=== PATIENT | male | born 1945 | race Caucasian/White ===

== ENCOUNTER 2019-04-01 16:26 | Emergency (ER) | payer MEDICARE ==
[~2019-04-01] VITALS: Ht 188 cm; Wt 72.7 kg
[2019-04-01 17:08] LABS: BASOPHILS % (AUTO) 0.5 % (0-1); EOSINOPHILS % (AUTO) 0.4 % (0-6); HEMATOCRIT 37.1 % (42.0-52.0); HEMOGLOBIN 12.3 g/dl (14.0-17.9); LYMPHOCYTES # (AUTO) 0.6 X10'3 (1.1-4.8); LYMPHOCYTES % (AUTO) 6.9 % (21-51); MEAN CORPUSCULAR HEMOGLOBIN 27.8 PG (27.0-31.0); MEAN CORPUSCULAR HGB CONC 33.1 g/dL (33.0-36.5); MEAN CORPUSCULAR VOLUME 83.9 FL (78-98); MEAN PLATELET VOLUME 6.8 FL (7.4-10.4); MONOCYTES # (AUTO) 0.6 X10'3 (0-0.9); MONOCYTES % (AUTO) 6.2 % (2-12); NEUTROPHILS # (AUTO) 7.8 X10'3 (1.8-7.7); PLATELET COUNT 469 X10'3 (140-440); RED BLOOD COUNT 4.42 X10'6 (4.70-6.10); RED CELL DISTRIBUTION WIDTH 14.1 % (11.5-14.5); WHITE BLOOD COUNT 9.1 X10'3 (4.5-11.0)
[2019-04-01 17:19] LABS: ALANINE AMINOTRANSFERASE 15 U/L (12-78); ALBUMIN 2.6 G/DL (3.4-5.0); ALBUMIN/GLOBULIN RATIO 0.5 (1.1-1.5); ALKALINE PHOSPHATASE 82 IU/L (46-116); ANION GAP 8 (8-16); ASPARTATE AMINO TRANSFERASE 10 U/L (10-37); BILIRUBIN,TOTAL 0.4 MG/DL (0.1-1.0); BLOOD UREA NITROGEN 12 MG/DL (7-18); BUN/CREATININE RATIO 12.2 (5.4-32.0); CALCIUM 10.2 MG/DL (8.5-10.1); CHLORIDE 99 MMOL/L (99-107); CREATININE 0.98 MG/DL (0.60-1.10); GLUCOSE 195 MG/DL (70-104); POTASSIUM 3.5 MMOL/L (3.5-5.1); SODIUM 138 MMOL/L (135-145); TOTAL CARBON DIOXIDE 31.2 MMOL/L (24-32); TOTAL PROTEIN 7.4 G/DL (6.4-8.2); eGFR 75 ML/MIN
[2019-04-01] MEDS ORDERED: HYDR-4383 PO (20:43)
[2019-04-01] MEDS ORDERED: CEPH250T PO (20:44)
[2019-04-01] MEDS ORDERED: oxyCODONE/APAP 10/325mg tablet PO ONE (20:45)
[2019-04-01] MEDS ORDERED: CefTRIAXone 1000mg IM Kit (w/lidocaine diluent) IM ONE (20:45)
[2019-04-01 21:02] VITALS: BP 113/69
== END 2019-04-01 21:04 | disposition home or self-care (01) ==
LOC: ER 16:27
DX: L02.11 Cutaneous abscess of neck (principal); L03.221 Cellulitis of neck; R91.1 Solitary pulmonary nodule; D11.9 Benign neoplasm of major salivary gland, unspecified; D09.8 Carcinoma in situ of other specified sites; Z79.2 Long term (current) use of antibiotics; Z79.899 Other long term (current) drug therapy
CPT/HCPCS: 36415; 70450; 70490; 71045; 71250; 80053; 84484; 85025; 93005; 96372; 99284; J0696

== ENCOUNTER 2019-04-24 19:53 | Inpatient (IN) | payer MEDICARE, OTHER ==
[~2019-04-24] VITALS: Ht 188 cm; Wt 72.7 kg
[2019-04-24] MEDS: normal saline 1000ml 1,000 ML IV SCH (01:00)
[~2019-04-24 19:53] MED LIST: HYDR-4383 PO
[2019-04-24 20:50] LABS: BASOPHILS # (AUTO) 0.3 X10'3 (0-0.2); BASOPHILS % (AUTO) 1.9 % (0-1); EOSINOPHILS % (AUTO) 0.2 % (0-6); HEMATOCRIT 38.5 % (42.0-52.0); HEMOGLOBIN 12.4 g/dl (14.0-17.9); LYMPHOCYTES # (AUTO) 1.2 X10'3 (1.1-4.8); LYMPHOCYTES % (AUTO) 7.7 % (21-51); MEAN CORPUSCULAR HEMOGLOBIN 26.9 PG (27.0-31.0); MEAN CORPUSCULAR HGB CONC 32.1 g/dL (33.0-36.5); MEAN CORPUSCULAR VOLUME 83.8 FL (78-98); MEAN PLATELET VOLUME 8.1 FL (7.4-10.4); MONOCYTES # (AUTO) 1.1 X10'3 (0-0.9); MONOCYTES % (AUTO) 7.3 % (2-12); NEUTROPHILS # (AUTO) 12.7 X10'3 (1.8-7.7); NEUTROPHILS % (AUTO) 82.9 % (42-75); PLATELET COUNT 345 X10'3 (140-440); RED CELL DISTRIBUTION WIDTH 15.7 % (11.5-14.5); WHITE BLOOD COUNT 15.3 X10'3 (4.5-11.0)
[2019-04-24 21:06] LABS: ALANINE AMINOTRANSFERASE 32 U/L (12-78); ALBUMIN 2.7 G/DL (3.4-5.0); ALBUMIN/GLOBULIN RATIO 0.6 (1.1-1.5); ALKALINE PHOSPHATASE 97 IU/L (46-116); ANION GAP 14 (8-16); ASPARTATE AMINO TRANSFERASE 40 U/L (10-37); BILIRUBIN,TOTAL 0.7 MG/DL (0.1-1.0); BLOOD UREA NITROGEN 43 MG/DL (7-18); BUN/CREATININE RATIO 23.6 (5.4-32.0); CHLORIDE 100 MMOL/L (99-107); CREATININE 1.82 MG/DL (0.60-1.10); GLUCOSE 236 MG/DL (70-104); MAGNESIUM 2.3 MG/DL (1.5-2.4); PARTIAL THROMBOPLASTIN TIME 41 SECONDS (22-32); POTASSIUM 3.5 MMOL/L (3.5-5.1); SODIUM 145 MMOL/L (135-145); TOTAL CARBON DIOXIDE 31.2 MMOL/L (24-32); TOTAL PROTEIN 7.4 G/DL (6.4-8.2); eGFR 37 ML/MIN
[2019-04-24] MEDS ORDERED: normal saline 1000ML IV soln IVB ONE ×2 (21:20→22:25)
[2019-04-24] MEDS ORDERED: ATOR10TA87 PO (21:27)
[2019-04-24] MEDS ORDERED: WARF1TAB PO (21:27)
[2019-04-24] MEDS ORDERED: LISI-604 PO (21:27)
--- NOTE | 2019-04-24 21:53 | NUR ---
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 1 L NS BOLUS ORDERED
[2019-04-24 22:09] LABS: CLARITY,URINE CLEAR (Clear); COLOR,URINE YELLOW (Yellow); GLUCOSE, URINE NEGATIVE (Neg); KETONES,URINE NEGATIVE (Neg); LEUKOCYTE ESTERASE ,URINE NEGATIVE (Neg); NITRITES, URINE NEGATIVE (Neg); OCCULT BLOOD,URINE NEGATIVE (Neg); PROTEIN,URINE NEGATIVE (Neg); UROBILINOGEN,URINE 0.2 E.U/dL (0.2-1.0)
[2019-04-24 22:10] LABS: UA COLLECTION TYPE FOLEY CATH
[2019-04-24] MEDS ORDERED: vancomycin/NS 1 GM ADD-VANTAGE 250 ML IV ONE (22:25)
[2019-04-24] MEDS ORDERED: CefTRIAXone 2gm/D5W 50ml 50 ML IV ONE (22:25)
[2019-04-24] MEDS ORDERED: magnesium hydroxide 30ml (MOM) UD suspension PO PRN (22:50)
[2019-04-24] MEDS ORDERED: HYDROcodone/acetaminophen 5mg/325mg tablet PO PRN (22:50)
[2019-04-24] MEDS ORDERED: magnesium 2GM in 50ml NS 50 ML IV PRN (22:50)
[2019-04-24] MEDS ORDERED: acetaminophen 325mg tablet PO PRN ×2 (22:50)
[2019-04-24] MEDS ORDERED: magnesium 4gm in 100ml NS 100 ML IV PRN (22:50)
[2019-04-24] MEDS ORDERED: potassium CL 10mEq/100ml bag 100 ML IV PRN (22:50)
[2019-04-24] MEDS ORDERED: magnesium Cl slow-release 64mg tablet PO PRN (22:50)
[2019-04-24] MEDS ORDERED: ondansetron/PF 4mg/2ml inj IV PRN (22:50)
[2019-04-24] MEDS ORDERED: morphine 2 MG/ML inj. syringe IV PRN ×2 (22:50)
[2019-04-24] MEDS ORDERED: mag hydrox/Alum hydrox/simeth 30ml oral suspension PO PRN (22:50)
--- NOTE | 2019-04-24 23:15 | NUR ---
Patient in room PCU 3009. I have received report from sudeep Jensen and had the opportunity to ask questions and assume patient care. ER nurse said pt needs a sitter due to pull out lines, but no order was put in.
[2019-04-24 23:30] VITALS: BP 129/65
[2019-04-25] VITALS (7 sets, daily range): BP systolic 90–141; BP diastolic 50–82
[2019-04-25 01:36] LABS: BASOPHILS % (AUTO) 0.1 % (0-1); EOSINOPHILS % (AUTO) 0 % (0-6); HEMATOCRIT 38.3 % (42.0-52.0); HEMOGLOBIN 12.7 g/dl (14.0-17.9); LYMPHOCYTES # (AUTO) 0.3 X10'3 (1.1-4.8); LYMPHOCYTES % (AUTO) 3.7 % (21-51); MEAN CORPUSCULAR HEMOGLOBIN 26.9 PG (27.0-31.0); MEAN CORPUSCULAR HGB CONC 33.2 g/dL (33.0-36.5); MEAN CORPUSCULAR VOLUME 81.1 FL (78-98); MEAN PLATELET VOLUME 8.1 FL (7.4-10.4); MONOCYTES # (AUTO) 0.4 X10'3 (0-0.9); MONOCYTES % (AUTO) 4.2 % (2-12); NEUTROPHILS # (AUTO) 8.3 X10'3 (1.8-7.7); PLATELET COUNT 287 X10'3 (140-440); RED BLOOD COUNT 4.72 X10'6 (4.70-6.10); RED CELL DISTRIBUTION WIDTH 15.2 % (11.5-14.5)
--- NOTE | 2019-04-25 01:47 | NUR ---
paged Dr. Ornelas about pt vital sign Kyle Doshi 3009 is meeting criteria for sepsis, temp 102.5, Hr 130s sustaining, lactic 2.8. Thanks, Antonina [phone]! Got an order 1L in two hours from Dr. Ornelas.
[2019-04-25 01:51] LABS: ALBUMIN 2.6 G/DL (3.4-5.0); ANION GAP 7 (8-16); BLOOD UREA NITROGEN 41 MG/DL (7-18); BUN/CREATININE RATIO 26.5 (5.4-32.0); CHLORIDE 103 MMOL/L (99-107); CREATININE 1.55 MG/DL (0.60-1.10); GLUCOSE 176 MG/DL (70-104); MAGNESIUM 2.3 MG/DL (1.5-2.4); POTASSIUM 3.2 MMOL/L (3.5-5.1); SODIUM 145 MMOL/L (135-145); TOTAL CARBON DIOXIDE 34.8 MMOL/L (24-32); eGFR 44 ML/MIN
[2019-04-25 01:53] LABS: CALCIUM 12.7 MG/DL (8.5-10.1)
--- NOTE | 2019-04-25 02:06 | NUR ---
PAGER ID: [phone] MESSAGE: pt [phone] Kyle Doshi is not able to take oral Tylenol, can he get an order of suppository Tylenol? Ca is 12.7, Thanks, Antonina [phone]!
[2019-04-25] MEDS ORDERED: acetaminophen 650mg rectal suppository RC ONE (02:10)
[2019-04-25] MEDS ORDERED: normal saline 1000ml 1,000 ML IV ONE (02:10)
[2019-04-25] MEDS ORDERED: acetaminophen 650mg rectal suppository RC PRN (02:20)
--- NOTE | 2019-04-25 03:01 | NUR ---
Dr. Ornelas called and put in new order. Pt is not cooperative with consuming anything by mouth. wants to do a CT of ab with contrast on 04/26 due to pt not swallowing
--- NOTE | 2019-04-25 03:07 | NUR ---
pt resting on bed, no response verbally when being asked, not pulling out lines, will keep evaluating if pt needs a sitter order
--- NOTE | 2019-04-25 03:08 | NUR ---
pt not able to response verbaly anymore, withdraw to pain, resting comfortably on bed
--- NOTE | 2019-04-25 06:40 | NUR ---
Patient in room PCU 3009. I have received report from IMELDA Sarkar and had the opportunity to ask questions and assume patient care. Patient resting in bed, bed locked and low, call light in reach, NS@100ml/hr, will continue to monitor.
[2019-04-25] MEDS: K and/or MAG REPLACEMENT MC SCH (07:07)
[2019-04-25] MEDS: enoxaparin 40mg/0.4ml syringe SQ SCH (07:07)
--- NOTE | 2019-04-25 07:55 | NUR ---
patient reports he is unable to swallow, does not want food tray. Will get oral swabs for mucus membrane dryness
--- NOTE | 2019-04-25 08:12 | NUR ---
PAGER ID: [phone] MESSAGE: IMELDA Griffith, ext [phone], Doshi, patient has skin cx lesions on his chest with oozing wounds and sloughing skin, is EKG necessary? He's SR w/occ PVCs on tele. Also, he cannot swallow, I made him NPO
[2019-04-25] MEDS: normal saline 1000ml 1,000 ML IV SCH ×2 (08:47→20:28)
[2019-04-25 09:51] LABS: ALBUMIN 2.1 G/DL (3.4-5.0); ANION GAP 5 (8-16); BLOOD UREA NITROGEN 37 MG/DL (7-18); BUN/CREATININE RATIO 28.7 (5.4-32.0); CALCIUM 11.4 MG/DL (8.5-10.1); CHLORIDE 108 MMOL/L (99-107); CREATININE 1.29 MG/DL (0.60-1.10); GLUCOSE 154 MG/DL (70-104); POTASSIUM 3.1 MMOL/L (3.5-5.1); SODIUM 144 MMOL/L (135-145); TOTAL CARBON DIOXIDE 30.8 MMOL/L (24-32); eGFR 55 ML/MIN
[2019-04-25] MEDS: potassium CL 10mEq/100ml bag 100 ML IV PRN ×4 (09:59→16:09)
--- NOTE | 2019-04-25 12:41 | NUR ---
PAGER ID: [phone] MESSAGE: IMELDA Griffith, ext [phone], Tico, critical value: +BC gram - rods, gram + cocci in pairs both in the anaerobic bottle
--- NOTE | 2019-04-25 15:57 | NUR ---
PAGER ID: [phone] MESSAGE: IMEDLA Griffith, ext [phone], Tico, critical value: BC+ aerobic with gram+ cocci pairs+chains.
[2019-04-25 16:06] LABS: HEMOGLOBIN A1C 7.7 % (4.5-6.2)
--- NOTE | 2019-04-25 18:11 | NUR ---
Patient in room PCU 3009. I have received report from Gladis SEGURA and had the opportunity to ask questions and assume patient care.
--- NOTE | 2019-04-25 18:30 | NUR ---
Problems reprioritized. Patient report given, questions answered & plan of care reviewed with IMELDA Sarkar.
--- NOTE | 2019-04-25 18:35 | NUR ---
spoke to Dr. Crane about the abdominal CT, he said he doesn't think the pt needs it.
[2019-04-25] MEDS: diatr meglu/diatrizoate 30ml oral sol.-(3 dose) bottle PO SCH (18:38)
[2019-04-25] MEDS: lactobacillus rhamnosus 10,000 MMU CELLS/CAPSULE PO SCH (20:28)
[2019-04-25] MEDS: CefTRIAXone 2gm/D5W 50ml 50 ML IV SCH (21:25)
[2019-04-25] MEDS ORDERED: CefTRIAXone 2gm/D5W 50ml 50 ML IV SCH (22:00)
[2019-04-25] MEDS ORDERED: vancomycin/NS 1 GM ADD-VANTAGE 250 ML IV SCH ×2 (22:00)
[2019-04-26] VITALS (7 sets, daily range): BP systolic 107–150; BP diastolic 62–81
[2019-04-26 06:09] LABS: BASOPHILS % (AUTO) 0.3 % (0-1); EOSINOPHILS % (AUTO) 0.1 % (0-6); HEMATOCRIT 31.8 % (42.0-52.0); HEMOGLOBIN 10.5 g/dl (14.0-17.9); LYMPHOCYTES # (AUTO) 0.4 X10'3 (1.1-4.8); MEAN CORPUSCULAR HGB CONC 32.9 g/dL (33.0-36.5); MONOCYTES # (AUTO) 0.4 X10'3 (0-0.9); MONOCYTES % (AUTO) 9.8 % (2-12); NEUTROPHILS # (AUTO) 3.7 X10'3 (1.8-7.7); NEUTROPHILS % (AUTO) 81.8 % (42-75); PLATELET COUNT 236 X10'3 (140-440); RED BLOOD COUNT 3.88 X10'6 (4.70-6.10); RED CELL DISTRIBUTION WIDTH 15.4 % (11.5-14.5); WHITE BLOOD COUNT 4.6 X10'3 (4.5-11.0)
[2019-04-26 06:15] LABS: ALBUMIN 2.1 G/DL (3.4-5.0); ANION GAP 6 (8-16); BLOOD UREA NITROGEN 31 MG/DL (7-18); BUN/CREATININE RATIO 25.2 (5.4-32.0); CALCIUM 11.7 MG/DL (8.5-10.1); CHLORIDE 110 MMOL/L (99-107); CREATININE 1.23 MG/DL (0.60-1.10); GLUCOSE 126 MG/DL (70-104); MAGNESIUM 2.1 MG/DL (1.5-2.4); POTASSIUM 3.1 MMOL/L (3.5-5.1); SODIUM 148 MMOL/L (135-145); TOTAL CARBON DIOXIDE 32.1 MMOL/L (24-32); eGFR 58 ML/MIN
--- NOTE | 2019-04-26 06:25 | NUR ---
Patient in room PCU 3009. I have received report from IMELDA PALOMINO and had the opportunity to ask questions and assume patient care.
--- NOTE | 2019-04-26 06:43 | NUR ---
Problems reprioritized. Patient report given, questions answered & plan of care reviewed with Cristofer RN.
[2019-04-26] MEDS: diatr meglu/diatrizoate 30ml oral sol.-(3 dose) bottle PO SCH ×2 (07:00→20:21)
[2019-04-26] MEDS: normal saline 1000ml 1,000 ML IV SCH ×3 (07:36→23:14)
[2019-04-26] MEDS: lactobacillus rhamnosus 10,000 MMU CELLS/CAPSULE PO SCH ×2 (07:37→21:05)
[2019-04-26] MEDS: potassium Cl 20 mEq SR tablet PO PRN ×3 (07:37→16:22)
[2019-04-26] MEDS: enoxaparin 40mg/0.4ml syringe SQ SCH (07:38)
[2019-04-26] MEDS: K and/or MAG REPLACEMENT MC SCH (08:00)
[2019-04-26] MEDS: vancomycin/NS 1 GM ADD-VANTAGE 250 ML IV SCH ×2 (12:10→23:14)
--- NOTE | 2019-04-26 13:24 | NUR ---
DM/Malnutrition consults: Pt admit w/ ALOC AOx1 DX sepsis, dehydration, possible PNA, and RUSTY. Hx T2DM A1C 7.7; not appropriate for ed at this time. Pt hx chemo for squamous cell CA admit w/ lytic lesions possible new METS per MD note. Ca 11.7 likely r/t METS per MD. Pt SO/family seen by RD at bedside and report prior to chemo starting May-Jun 2018 pt was over 200 pounds w/ May 2018 admit wt 196pounds. SO reports prior to increased sickness past few weeks pt was starting to regain wt as chemo course had finished but then PO decreased r/t new illness. SO reports pt usually drinks ensures TIDWM at home as well as ice cream and high kcal foods in order to attempt regaining wt when appetite was higher. Pt current wt is pt stated pending official scaled wt this admit but SO does reports 175 pounds prior to most recent illness past 2 weeks w/ current stated wt at 160 pounds. Though exact amount unsure there is at least 30 pound wt loss within past 9 months 15-18% severe loss in addition to visible severe muscle/fat wasting, and poor PO hx. Pt qualifies for severe malnutrition at this time; MD notified. SO/family provided w/ written/verbal malnutrition ed w/ RD contact information provided. Diet advanced to full liquids but refusing and trouble w/ PO per ; RD recommended HAT PARTS CUTTER MACHINE BSS. Pending HAT PARTS CUTTER MACHINE BSS in AM; will tailor ONS based on recs. Will continue to monitor. Rec: 1. advance diet per MD/HAT PARTS CUTTER MACHINE to regular 2. IF tolerated thin liquids; ensure enlive TIDWM, ice cream TIDWM 3. IF good PO once on regular diet; consider carb controlled restriction 4. MVI/mineral for nutrient needs 5. IF NPO per HAT PARTS CUTTER MACHINE; consider alternative nutrition to meet needs w/ malnutrition Addendum: 04/26/19 at [address] Amended: Links added.
--- NOTE | 2019-04-26 13:32 | NUR ---
PAGED PT:[id number], FAMILY REQUESTING HE BE BACK IN BED. NOTE TODAY INDICATES PT ONLY. RAFI [phone]. TY.
--- NOTE | 2019-04-26 15:39 | NUR ---
RECEIVED REPORT FROM IMELDA BENOIT AND ASSUMED CARE. AGREE WITH PREVIOUS ASSESSMENT. Addendum: 04/26/19 at 1541 by Julio Fallon RN DISREGARD. WRONG PATIENT.
--- NOTE | 2019-04-26 16:03 | NUR ---
PAGER ID: [phone] MESSAGE: DR. JAMESON, [id number]/JOSEY. ORTHOSTATICS(THEY DID NOT MEASURE HEART RATE) SUPINE;143/69, sit:150/66, stand:107/81. shayy [id number]. ty
--- NOTE | 2019-04-26 16:55 | NUR ---
weight with 0600 vs 70.8kg today.
[2019-04-26] MEDS ORDERED: iohexol 300mg/ml 100ml inj. ONE (17:14)
--- NOTE | 2019-04-26 18:27 | NUR ---
Problems reprioritized. Patient report given, questions answered & plan of care reviewed with светлана howard.
--- NOTE | 2019-04-26 19:04 | NUR ---
received a call from the radiologist gynecological assistant about a critical value CT result, she needed Hospitalist's phone number, Dr. Crane cellphone and page number was given
--- NOTE | 2019-04-26 19:30 | NUR ---
received order form Dr. Crane about pt CT with possible DVT
[2019-04-26] MEDS ORDERED: enoxaparin 100mg/ml syringe SUBCUT ONE (19:35)
[2019-04-26] MEDS: CefTRIAXone 2gm/D5W 50ml 50 ML IV SCH (21:05)
[2019-04-27] VITALS (11 sets, daily range): BP systolic 116–147; BP diastolic 58–75
[2019-04-27 05:24] LABS: BASOPHILS % (AUTO) 0.3 % (0-1); EOSINOPHILS % (AUTO) 0.2 % (0-6); HEMATOCRIT 27.5 % (42.0-52.0); HEMOGLOBIN 9.1 g/dl (14.0-17.9); LYMPHOCYTES # (AUTO) 0.3 X10'3 (1.1-4.8); LYMPHOCYTES % (AUTO) 6.2 % (21-51); MEAN CORPUSCULAR HGB CONC 33.2 g/dL (33.0-36.5); MEAN CORPUSCULAR VOLUME 81.2 FL (78-98); MEAN PLATELET VOLUME 7.8 FL (7.4-10.4); MONOCYTES # (AUTO) 0.4 X10'3 (0-0.9); MONOCYTES % (AUTO) 9.1 % (2-12); NEUTROPHILS # (AUTO) 3.8 X10'3 (1.8-7.7); NEUTROPHILS % (AUTO) 84.2 % (42-75); PLATELET COUNT 183 X10'3 (140-440); RED BLOOD COUNT 3.38 X10'6 (4.70-6.10); RED CELL DISTRIBUTION WIDTH 15.3 % (11.5-14.5); WHITE BLOOD COUNT 4.6 X10'3 (4.5-11.0)
[2019-04-27 05:39] LABS: ALBUMIN 1.8 G/DL (3.4-5.0); ANION GAP 8 (8-16); BLOOD UREA NITROGEN 23 MG/DL (7-18); BUN/CREATININE RATIO 21.7 (5.4-32.0); CALCIUM 10.5 MG/DL (8.5-10.1); CHLORIDE 111 MMOL/L (99-107); CREATININE 1.06 MG/DL (0.60-1.10); GLUCOSE 104 MG/DL (70-104); MAGNESIUM 1.8 MG/DL (1.5-2.4); SODIUM 147 MMOL/L (135-145); TOTAL CARBON DIOXIDE 28.4 MMOL/L (24-32); eGFR 69 ML/MIN
[2019-04-27 05:42] LABS: POTASSIUM 2.8 MMOL/L (3.5-5.1)
[2019-04-27] MEDS: potassium Cl 20 mEq SR tablet PO PRN ×3 (05:51→21:04)
--- NOTE | 2019-04-27 06:23 | NUR ---
Patient in room PCU 3009. I have received report from Antonina SEGURA and had the opportunity to ask questions and assume patient care. All patient's needs met at this time.
--- NOTE | 2019-04-27 06:23 | NUR ---
Problems reprioritized. Patient report given, questions answered & plan of care reviewed with Gladis SEGURA.
[2019-04-27] MEDS: lactobacillus rhamnosus 10,000 MMU CELLS/CAPSULE PO SCH ×2 (07:23→21:04)
[2019-04-27] MEDS: enoxaparin 40mg/0.4ml syringe SQ SCH (07:23)
[2019-04-27] MEDS: K and/or MAG REPLACEMENT MC SCH (08:00)
[2019-04-27] MEDS ORDERED: Dakins solution (1/4 strength) 473ml solution TP SCH (08:00)
[2019-04-27] MEDS ORDERED: enoxaparin 30mg/0.3ml syringe SUBCUT ONE ×2 (10:10→20:00)
--- NOTE | 2019-04-27 10:12 | NUR ---
F/u: Pt advanced to pureed/thin liquids per HORTICULTURAL MANAGER recs. Ensure Enlive TIDWM added pending MD verification prior to sending on trays. Ensure pudding daily w/ lunches and ice cream at dinners added since pt enjoys at home per SO. Will monitor for ONS acceptance and PO diet tolerance. DM/Malnutrition consults: Pt admit w/ ALOC AOx1 DX sepsis, dehydration, possible PNA, and RUSTY. Hx T2DM A1C 7.7; not appropriate for ed at this time. Pt hx chemo for squamous cell CA admit w/ lytic lesions possible new METS per MD note. Ca 11.7 likely r/t METS per MD. Pt SO/family seen by RD at bedside and report prior to chemo starting May-Jun 2018 pt was over 200 pounds w/ May 2018 admit wt 196pounds. SO reports prior to increased sickness past few weeks pt was starting to regain wt as chemo course had finished but then PO decreased r/t new illness. SO reports pt usually drinks ensures TIDWM at home as well as ice cream and high kcal foods in order to attempt regaining wt when appetite was higher. Pt current wt is pt stated pending official scaled wt this admit but SO does reports 175 pounds prior to most recent illness past 2 weeks w/ current stated wt at 160 pounds. Though exact amount unsure there is at least 30 pound wt loss within past 9 months 15-18% severe loss in addition to visible severe muscle/fat wasting, and poor PO hx. Pt qualifies for severe malnutrition at this time; MD notified. SO/family provided w/ written/verbal malnutrition ed w/ RD contact information provided. Diet advanced to full liquids but refusing and trouble w/ PO per ; RD recommended HORTICULTURAL MANAGER BSS. Pending HORTICULTURAL MANAGER BSS in AM; will tailor ONS based on recs. Will continue to monitor. Rec: 1. continue pureed/thin liquid diet per MD/HORTICULTURAL MANAGER recs 2. ensure enlive TIDWM, ice cream w/ dinners; ensure pudding w/ lunches 3. IF good PO once on regular diet; consider carb controlled restriction 4. MVI/mineral for nutrient needs Addendum: 04/27/19 at [address] Amended: Links added.
--- NOTE | 2019-04-27 10:51 | NUR ---
Paged Dr Crane MESSAGE: Re: Kyle Doshi Rm [phone]. FYI Repeat INR on 04/27/19 at 0910 was 3.9 Gladis [phone]
[2019-04-27] MEDS: normal saline 1000ml 1,000 ML IV SCH ×2 (11:03→21:15)
[2019-04-27] MEDS ORDERED: VANCOMYCIN LEVEL IV ONE ×2 (11:30→21:30)
--- NOTE | 2019-04-27 11:51 | NUR ---
Paged Dr Crane MESSAGE: Re: Kyle Doshi [id number]. MRI called and need clarification of what you want scanned. She said they don't scan for squamous cell ca, did you mean to yara MRA? Gladis [phone]
--- NOTE | 2019-04-27 12:51 | NUR ---
Paged Dr Crane about transfusion consent needing signed. MESSAGE: Re Kyle Doshi [id number]. I have the transfusion consent signed by patient's , where are you and I'll come to you. Thanks Gladis [phone]
[2019-04-27] MEDS: lactose-reduced food (Ensure Enlive) - 237ml bottle PO SCH ×2 (13:00→18:00)
--- NOTE | 2019-04-27 14:49 | NUR ---
Paged Dr Crane for the second time regarding needing consent signed for FFP MESSAGE: Re: Tico Zenyrafal Rm [id number] FYI FFP are ready, just need consent signed. Thank you Ndjze [phone]
--- NOTE | 2019-04-27 16:13 | NUR ---
Paged Dr Crane Re: Vanco trough MESSAGE: Re: Kyle Doshi [id number] FYI I held Vanco, his vanco trough was 15.3, FFP is currently running. Thanks Gladis [phone]
--- NOTE | 2019-04-27 16:40 | NUR ---
Completed infusion of FFP, patient tolerated well with no complications. Educated patient on side effects, and to let nurses know if any changes occur. Will continue to monitor
[2019-04-27] MEDS ORDERED: iohexol 300mg/ml 100ml inj. ONE (17:27)
--- NOTE | 2019-04-27 19:05 | NUR ---
Problems reprioritized. Patient report given, questions answered & plan of care reviewed with Antonina SEGURA. All patient's needs met at this time.
[2019-04-27] MEDS ORDERED: enoxaparin 40mg/0.4ml syringe SQ ONE (20:00)
[2019-04-28] VITALS (20 sets, daily range): BP systolic 90–155; BP diastolic 53–79
[2019-04-28] MEDS ORDERED: potassium Cl 20 mEq SR tablet PO PRN (04:45)
[2019-04-28 05:44] LABS: BASOPHILS % (AUTO) 0.3 % (0-1); EOSINOPHILS % (AUTO) 0.5 % (0-6); HEMOGLOBIN 8.8 g/dl (14.0-17.9); LYMPHOCYTES # (AUTO) 0.4 X10'3 (1.1-4.8); LYMPHOCYTES % (AUTO) 7.3 % (21-51); MEAN CORPUSCULAR HEMOGLOBIN 27.1 PG (27.0-31.0); MEAN CORPUSCULAR HGB CONC 33.7 g/dL (33.0-36.5); MEAN CORPUSCULAR VOLUME 80.4 FL (78-98); MEAN PLATELET VOLUME 8.4 FL (7.4-10.4); MONOCYTES # (AUTO) 0.4 X10'3 (0-0.9); MONOCYTES % (AUTO) 6.9 % (2-12); NEUTROPHILS # (AUTO) 4.7 X10'3 (1.8-7.7); PLATELET COUNT 193 X10'3 (140-440); RED BLOOD COUNT 3.23 X10'6 (4.70-6.10); RED CELL DISTRIBUTION WIDTH 14.9 % (11.5-14.5); WHITE BLOOD COUNT 5.6 X10'3 (4.5-11.0)
[2019-04-28 06:04] LABS: ALBUMIN 1.8 G/DL (3.4-5.0); ANION GAP 7 (8-16); BLOOD UREA NITROGEN 16 MG/DL (7-18); BUN/CREATININE RATIO 19.3 (5.4-32.0); CALCIUM 10.7 MG/DL (8.5-10.1); CHLORIDE 108 MMOL/L (99-107); CREATININE 0.83 MG/DL (0.60-1.10); GLUCOSE 101 MG/DL (70-104); MAGNESIUM 1.6 MG/DL (1.5-2.4); POTASSIUM 3.4 MMOL/L (3.5-5.1); SODIUM 140 MMOL/L (135-145); TOTAL CARBON DIOXIDE 24.7 MMOL/L (24-32); eGFR > 90 ML/MIN
--- NOTE | 2019-04-28 06:14 | NUR ---
Problems reprioritized. Patient report given, questions answered & plan of care reviewed with Gladis Jensen.
[2019-04-28] MEDS ORDERED: levoFLOXACIN-Levaquin 750MG/D5 150 ML IV SCH (08:00)
[2019-04-28] MEDS: lactose-reduced food (Ensure Enlive) - 237ml bottle PO SCH ×3 (08:00→18:00)
[2019-04-28] MEDS: K and/or MAG REPLACEMENT MC SCH (08:00)
[2019-04-28] MEDS: normal saline 1000ml 1,000 ML IV SCH ×3 (09:21→23:00)
[2019-04-28] MEDS: lactobacillus rhamnosus 10,000 MMU CELLS/CAPSULE PO SCH ×2 (09:21→19:29)
[2019-04-28] MEDS: potassium Cl 20 mEq SR tablet PO PRN ×3 (09:21→23:34)
[2019-04-28] MEDS: silver sulfadiazine cream 400gm jar TP SCH (09:35)
[2019-04-28] MEDS ORDERED: LIDOcaine 1%/PF 5ML 10 MG/ML VIAL SQ ONE (10:55)
[2019-04-28] MEDS ORDERED: midazolam 2 mg/2 ml injection IV PRN (10:55)
[2019-04-28] MEDS ORDERED: fentaNYL/PF 50MCG/1 ML 2ML syringe IV PRN (10:55)
[2019-04-28] MEDS ORDERED: midazolam 2 mg/2 ml injection ONE (11:13)
[2019-04-28] MEDS ORDERED: fentaNYL/PF 50MCG/1 ML 2ML syringe ONE (11:13)
--- NOTE | 2019-04-28 19:27 | NUR ---
Non-administered silvadene cream administration from day shift. RN reports that wound care changed dressing during day shift.
[2019-04-28] MEDS ORDERED: enoxaparin 100mg/ml syringe SUBCUT SCH (20:00)
[2019-04-28] MEDS: piperacillin/tazo 3.375gm/50ml 50 ML IV SCH (23:34)
[2019-04-29 02:00] VITALS: BP 120/65
--- NOTE | 2019-04-29 02:18 | NUR ---
Placed in air bed per order, replaced dressing to coccyx.
[2019-04-29] MEDS: normal saline 1000ml 1,000 ML IV SCH ×2 (02:47→09:03)
[2019-04-29 06:00] VITALS: BP 130/68
[2019-04-29 06:00] LABS: BASOPHILS % (AUTO) 0.2 % (0-1); EOSINOPHILS % (AUTO) 0.7 % (0-6); HEMATOCRIT 28.4 % (42.0-52.0); HEMOGLOBIN 9.5 g/dl (14.0-17.9); LYMPHOCYTES # (AUTO) 0.4 X10'3 (1.1-4.8); LYMPHOCYTES % (AUTO) 6.6 % (21-51); MEAN CORPUSCULAR HEMOGLOBIN 26.8 PG (27.0-31.0); MEAN CORPUSCULAR HGB CONC 33.3 g/dL (33.0-36.5); MEAN CORPUSCULAR VOLUME 80.6 FL (78-98); MEAN PLATELET VOLUME 7.6 FL (7.4-10.4); MONOCYTES # (AUTO) 0.4 X10'3 (0-0.9); MONOCYTES % (AUTO) 6.5 % (2-12); NEUTROPHILS # (AUTO) 5.8 X10'3 (1.8-7.7); PLATELET COUNT 230 X10'3 (140-440); RED BLOOD COUNT 3.52 X10'6 (4.70-6.10); RED CELL DISTRIBUTION WIDTH 15.3 % (11.5-14.5); WHITE BLOOD COUNT 6.7 X10'3 (4.5-11.0)
[2019-04-29 06:17] LABS: ALBUMIN 1.7 G/DL (3.4-5.0); ANION GAP 8 (8-16); BLOOD UREA NITROGEN 15 MG/DL (7-18); BUN/CREATININE RATIO 16.7 (5.4-32.0); CALCIUM 10.6 MG/DL (8.5-10.1); CHLORIDE 109 MMOL/L (99-107); GLUCOSE 85 MG/DL (70-104); MAGNESIUM 1.6 MG/DL (1.5-2.4); POTASSIUM 3.4 MMOL/L (3.5-5.1); SODIUM 145 MMOL/L (135-145); TOTAL CARBON DIOXIDE 27.6 MMOL/L (24-32); eGFR 83 ML/MIN
--- NOTE | 2019-04-29 06:26 | NUR ---
Problems reprioritized. Patient report given, questions answered & plan of care reviewed with IMELDA Griffith.
[2019-04-29] MEDS: K and/or MAG REPLACEMENT MC SCH (08:00)
[2019-04-29] MEDS: lactose-reduced food (Ensure Enlive) - 237ml bottle PO SCH ×3 (08:00→18:00)
[2019-04-29] MEDS: lactobacillus rhamnosus 10,000 MMU CELLS/CAPSULE PO SCH ×2 (09:03→20:53)
[2019-04-29] MEDS: potassium Cl 20 mEq SR tablet PO PRN ×2 (09:03→16:31)
[2019-04-29] MEDS: piperacillin/tazo 3.375gm/50ml 50 ML IV SCH ×2 (09:03→16:31)
[2019-04-29 11:00] VITALS: BP 129/67
[2019-04-29] MEDS: silver sulfadiazine cream 400gm jar TP SCH (11:56)
[2019-04-29 15:00] VITALS: BP 128/61
--- NOTE | 2019-04-29 18:51 | NUR ---
Problems reprioritized. Patient report given, questions answered & plan of care reviewed with Lillie SEGURA. All patient's needs met at this time.
[2019-04-29 19:00] VITALS: BP 136/69
[2019-04-29 23:00] VITALS: BP 125/61
[2019-04-30] MEDS: piperacillin/tazo 3.375gm/50ml 50 ML IV SCH ×3 (00:05→16:09)
[2019-04-30 03:00] VITALS: BP 146/71
[2019-04-30 06:00] VITALS: BP 119/62
--- NOTE | 2019-04-30 06:15 | NUR ---
Patient in room PCU 3009. I have received report from IMELDA Moreira and had the opportunity to ask questions and assume patient care. Patient currently resting in bed, bed locked and low, call light in reach, denies complaints, no acute distress, will continue to monitor.
[2019-04-30 06:36] LABS: MAGNESIUM 1.6 MG/DL (1.5-2.4)
--- NOTE | 2019-04-30 07:20 | NUR ---
PAGER ID: [phone] MESSAGE: IMELDA Griffith, ext [phone], Tico, did you want daily labs for patient? Mg was the only thing ordered for today.
[2019-04-30] MEDS: silver sulfadiazine cream 400gm jar TP SCH (07:47)
[2019-04-30] MEDS: lactose-reduced food (Ensure Enlive) - 237ml bottle PO SCH ×3 (07:47→17:51)
[2019-04-30] MEDS: lactobacillus rhamnosus 10,000 MMU CELLS/CAPSULE PO SCH ×2 (07:47→20:18)
[2019-04-30] MEDS: normal saline 1000ml 1,000 ML IV SCH ×2 (07:48→18:47)
[2019-04-30] MEDS: K and/or MAG REPLACEMENT MC SCH (08:00)
[2019-04-30 11:00] VITALS: BP 113/60
--- NOTE | 2019-04-30 11:56 | NUR ---
Student documentation: I have reviewed and agree with all interventions, assessments performed and documented by HALIE BRAVO [facility].
[2019-04-30 12:38] LABS: BASOPHILS % (AUTO) 0.3 % (0-1); EOSINOPHILS # (AUTO) 0.1 X10'3 (0-0.9); EOSINOPHILS % (AUTO) 1.4 % (0-6); HEMATOCRIT 28.7 % (42.0-52.0); HEMOGLOBIN 9.3 g/dl (14.0-17.9); LYMPHOCYTES # (AUTO) 0.5 X10'3 (1.1-4.8); LYMPHOCYTES % (AUTO) 7.3 % (21-51); MEAN CORPUSCULAR HEMOGLOBIN 26.6 PG (27.0-31.0); MEAN CORPUSCULAR HGB CONC 32.5 g/dL (33.0-36.5); MEAN CORPUSCULAR VOLUME 81.9 FL (78-98); MEAN PLATELET VOLUME 8.3 FL (7.4-10.4); MONOCYTES # (AUTO) 0.5 X10'3 (0-0.9); MONOCYTES % (AUTO) 6.6 % (2-12); NEUTROPHILS # (AUTO) 6.1 X10'3 (1.8-7.7); NEUTROPHILS % (AUTO) 84.4 % (42-75); PLATELET COUNT 265 X10'3 (140-440); RED CELL DISTRIBUTION WIDTH 15.4 % (11.5-14.5); WHITE BLOOD COUNT 7.3 X10'3 (4.5-11.0)
[2019-04-30 12:58] LABS: ALBUMIN 1.7 G/DL (3.4-5.0); ANION GAP 10 (8-16); BLOOD UREA NITROGEN 14 MG/DL (7-18); BUN/CREATININE RATIO 14.7 (5.4-32.0); CALCIUM 10.8 MG/DL (8.5-10.1); CHLORIDE 108 MMOL/L (99-107); CREATININE 0.95 MG/DL (0.60-1.10); GLUCOSE 100 MG/DL (70-104); POTASSIUM 3.3 MMOL/L (3.5-5.1); SODIUM 141 MMOL/L (135-145); TOTAL CARBON DIOXIDE 22.7 MMOL/L (24-32); eGFR 78 ML/MIN
--- NOTE | 2019-04-30 13:51 | NUR ---
Reassessment: Pt PO 25-40% avg meals past 2 days. Drinking Ensures as well per RN though exact amount not documented. Per RN, pt prefers vanilla ensure puddings; dietary notified. LBM 04/29. RN reports pt also coughs following any PO but has been cleared by MATHEMATICS ACADEMIC CHAIR for pureed/thins today. Does have anterior chest wall fluid collection as well per MD note which may impact PO in combination w/ ALOC AOx2. Will continue to monitor for additional protein needs and PO/ONS diet tolerance this admit. Rec: 1. continue pureed/thin liquid diet per MD/MATHEMATICS ACADEMIC CHAIR recs 2. ensure enlive TIDWM, ice cream w/ dinners; vanilla ensure pudding w/ lunches 3. MVI/mineral for healing needs 4. weekly wts Addendum: 04/30/19 at [address] Amended: Links added.
--- NOTE | 2019-04-30 14:48 | NUR ---
Student documentation: I have reviewed and agree with all interventions, assessments performed and documented by Laura Monterroso [facility] nursing service director.
[2019-04-30 15:00] VITALS: BP 111/61
[2019-04-30 18:00] VITALS: BP 138/63
--- NOTE | 2019-04-30 18:20 | NUR ---
received report from Gladis RN
--- NOTE | 2019-04-30 18:31 | NUR ---
Problems reprioritized. Patient report given, questions answered & plan of care reviewed with IMELDA Hurtado. Patient currently resting in bed, bed locked and low, call light in reach, stable at shift change.
[2019-04-30] MEDS: potassium CL 10mEq/100ml bag 100 ML IV PRN ×2 (20:18→22:08)
[2019-04-30 22:00] VITALS: BP 127/66
[2019-05-01] MEDS: piperacillin/tazo 3.375gm/50ml 50 ML IV SCH ×2 (00:51→08:27)
[2019-05-01 02:00] VITALS: BP 123/61
[2019-05-01] MEDS: normal saline 1000ml 1,000 ML IV SCH ×2 (04:47→13:04)
[2019-05-01 06:00] VITALS: BP 146/66
--- NOTE | 2019-05-01 06:05 | NUR ---
report given to IMELDA Charles. pt sleeping comfortably in bed
[2019-05-01 06:13] LABS: BASOPHILS % (AUTO) 0.3 % (0-1); EOSINOPHILS # (AUTO) 0.1 X10'3 (0-0.9); EOSINOPHILS % (AUTO) 0.7 % (0-6); HEMATOCRIT 28.8 % (42.0-52.0); HEMOGLOBIN 9.7 g/dl (14.0-17.9); LYMPHOCYTES # (AUTO) 0.7 X10'3 (1.1-4.8); LYMPHOCYTES % (AUTO) 6.5 % (21-51); MEAN CORPUSCULAR HGB CONC 33.6 g/dL (33.0-36.5); MEAN CORPUSCULAR VOLUME 80.5 FL (78-98); MEAN PLATELET VOLUME 7.7 FL (7.4-10.4); MONOCYTES # (AUTO) 0.7 X10'3 (0-0.9); MONOCYTES % (AUTO) 6.9 % (2-12); NEUTROPHILS # (AUTO) 8.8 X10'3 (1.8-7.7); NEUTROPHILS % (AUTO) 85.6 % (42-75); PLATELET COUNT 322 X10'3 (140-440); RED BLOOD COUNT 3.58 X10'6 (4.70-6.10); RED CELL DISTRIBUTION WIDTH 15.3 % (11.5-14.5); WHITE BLOOD COUNT 10.3 X10'3 (4.5-11.0)
--- NOTE | 2019-05-01 06:29 | NUR ---
Patient in room PCU 3009. I have received report from Bryant SEGURA and had the opportunity to ask questions and assume patient care.
[2019-05-01 06:51] LABS: ALBUMIN 1.9 G/DL (3.4-5.0); ANION GAP 8 (8-16); BLOOD UREA NITROGEN 15 MG/DL (7-18); BUN/CREATININE RATIO 14.9 (5.4-32.0); CALCIUM 11.2 MG/DL (8.5-10.1); CHLORIDE 108 MMOL/L (99-107); CREATININE 1.01 MG/DL (0.60-1.10); GLUCOSE 149 MG/DL (70-104); MAGNESIUM 1.6 MG/DL (1.5-2.4); POTASSIUM 3.5 MMOL/L (3.5-5.1); SODIUM 142 MMOL/L (135-145); TOTAL CARBON DIOXIDE 26.1 MMOL/L (24-32); eGFR 73 ML/MIN
[2019-05-01] MEDS: K and/or MAG REPLACEMENT MC SCH (08:00)
[2019-05-01] MEDS: silver sulfadiazine cream 400gm jar TP SCH (08:27)
[2019-05-01] MEDS: lactobacillus rhamnosus 10,000 MMU CELLS/CAPSULE PO SCH (08:34)
[2019-05-01] MEDS: lactose-reduced food (Ensure Enlive) - 237ml bottle PO SCH ×2 (08:37→13:04)
[2019-05-01 11:00] VITALS: BP 160/74
--- NOTE | 2019-05-01 15:25 | NUR ---
Patient stable for discharge transfer to [facility] per MD orders. Report called into Jazmin SEGURA at [facility] and all questions answered. PIV and Trinh left in place per MD orders. personnel monitor discontinued. Belongings sent home with family. Patient left in [employer] vehicle and wheeled out on gurney by [employer].
--- NOTE | 2019-05-01 15:28 | NUR ---
Problems reprioritized. Patient report given, questions answered & plan of care reviewed with Jazmin RN at [facility]. Patient stable at time of transfer of care.
== END 2019-05-01 15:24 | DRG 871 ==
LOC: ER 19:53 → PCU 3S 22:47 → CMPBEDREQ 04-27 20:04
PROVIDERS: ADMIT Hospitalist; ATTEND Internal Medicine
PROC: BW241ZZ Computerized Tomography (CT Scan) of Chest and Abdomen using Low Osmolar Contrast (ICD-10-PCS; 2019-04-26)
PROC: 30233K1 Transfusion of Nonautologous Frozen Plasma into Peripheral Vein, Percutaneous Approach (ICD-10-PCS; 2019-04-27)
PROC: BW211ZZ Computerized Tomography (CT Scan) of Abdomen and Pelvis using Low Osmolar Contrast (ICD-10-PCS; 2019-04-27)
PROC: 0W983ZZ Drainage of Chest Wall, Percutaneous Approach (ICD-10-PCS; principal; 2019-04-28)
DX: A41.59 Other Gram-negative sepsis (principal); L89.154 Pressure ulcer of sacral region, stage 4; N17.0 Acute kidney failure with tubular necrosis; C79.51 Secondary malignant neoplasm of bone; E46 Unspecified protein-calorie malnutrition; I82.622 Acute embolism and thrombosis of deep veins of left upper extremity; E83.52 Hypercalcemia; R09.02 Hypoxemia; R62.7 Adult failure to thrive; D64.9 Anemia, unspecified; E87.6 Hypokalemia; G89.29 Other chronic pain; C76.0 Malignant neoplasm of head, face and neck; D63.8 Anemia in other chronic diseases classified elsewhere; E03.9 Hypothyroidism, unspecified; E86.0 Dehydration; R79.1 Abnormal coagulation profile; Z79.01 Long term (current) use of anticoagulants; Z86.73 Personal history of transient ischemic attack (TIA), and cerebral infarction without residual deficits; Z68.20 Body mass index [BMI] 20.0-20.9, adult; Z79.899 Other long term (current) drug therapy
CPT/HCPCS: 10160; 36415; 71045; 71260; 74177; 77012; 80048; 80053; 80202; 81003; 83036; 83605; 83735; 83880; 84132; 84145; 84439; 84443; 84484; 85025; 85610; 85651; 85730; 86885; 86900; 86901; 87040; 87070; 87077; 87081; 87186; 88108; 88305; 88341; 88342; 92508; 92616; 93005; 93308; 93970; 96365; 97110; 97112; 97161; 97530; 99285; G0378; J0696; J1650; J1956; J2250; J2270; J2543; J3010; J3370; J3480; J7030; P9059; Q9967